=== PATIENT | female | born 1935 | race Caucasian/White ===

== ENCOUNTER → 2016-10-02 | Outpatient (CLI) | payer BC ==
[2016-10-02 17:59] LABS: BASO % 0.3 %; BASO ABS # 0.03 K/uL (0-0.2); COMPLETE YES; HEMATOCRIT 40.5 % (37-47); IG% 0.3 %; LYMPH % 29.8 %; LYMPH ABS # 3.53 K/uL (1.2-3.4); MEAN CELL VOLUME 87.1 fL (80-100); MEAN CORPUSCULAR HEMOGLOBIN 28.8 pg (25-34); MEAN CORPUSCULAR HGB CONC 33.1 g/dl (32-36); MEAN PLATELET VOLUME 11.7 fL (7.4-10.4); MONO % 8.4 %; NEUT % 58.2 %; PLATELET COUNT 270 K/uL (130-400); RED BLOOD COUNT 4.65 M/uL (4.2-5.4); WHITE BLOOD COUNT 11.85 K/uL (4.8-10.8)
[2016-10-02 18:06] LABS: GLUCOSE 132 mg/dl (70-99)
[2016-10-02 18:07] LABS: ALB/GLOB RATIO 0.9 (0.9-2); ALKALINE PHOSPHATASE 76 U/L (45-117); ALT/SGPT 21 U/L (12-78); AST/SGOT 13 U/L (15-37); BLOOD UREA NITROGEN 26 mg/dl (7-18); BUN/CREATININE RATIO 23.7 (10-20); CALCIUM 9.5 mg/dl (8.5-10.1); CARBON DIOXIDE 31 mmol/L (21-32); CHLORIDE 103 mmol/L (98-107); MAGNESIUM 1.7 mg/dl (1.8-2.4); POTASSIUM 4.2 mmol/L (3.5-5.1); SODIUM 141 mmol/L (136-145)
[2016-10-03 07:10] LABS: ESTIMATED AVERAGE GLUCOSE 166 mg/dl; HA1C FLAG Normal (Normal)
== END | disposition home or self-care (01) ==
LOC: C.LABMFLN 16:04
PROVIDERS: ATTEND Family Medicine
DX: E11.9 Type 2 diabetes mellitus without complications (principal); E03.9 Hypothyroidism, unspecified; R00.2 Palpitations

== ENCOUNTER → 2016-11-26 | Outpatient (CLI) | payer BC ==
[~2016-11-26] MED LIST: REGADENOSON 0.4 MG/5 ML SYR ONE
--- NOTE | 2016-11-26 14:05 | MYOCARDIAL PERFUSION SCAN ---
DATE OF PROCEDURE: 11/26/2016. ORDERING PHYSICIAN: Dr. Diaz. PCP is Dr. Dye. PROCEDURE: 1. Myocardial perfusion study performed in multiple views/images. 2. Pharmacologic Lexiscan stress ECG. INDICATIONS: 1. Dyspnea with exertion. 2. Palpitations. 3. SVT. CONSENT: Informed written consent was obtained. ECG AND VITALS: Baseline ECG demonstrated sinus bradycardia with first degree AV block. Maximum heart rate was 82 beats per minute representing 58% maximum predicted heart rate. Resting blood pressure was 165/66 mmHg which was also the maximum blood pressure. The minimum blood pressure was 147/69 mmHg. Chest pain was reported shortly following the Lexiscan administration. This quickly resolved without intervention. PROCEDURAL DETAILS: For the stress portion of the study Lexiscan 0.4 mg IV was intravenously administered over 10-15 seconds followed by saline flush. This was followed with 33 mCi of technetium-99m Cardiolite at 11:09 a.m. on 11/26/2016. Thirty minutes following the injection, imaging of the heart was performed in multiple projections. For the rest portion of the study 10.7 mCi of technetium-99m Cardiolite was injected intravenously at 9:30 a.m. on the same day. One hour following injection, imaging of the heart was performed in the same projections. FINDINGS: Rotating raw imaging demonstrated no significant motion artifact. There was no significant lung uptake. Heart size appeared normal. Myocardial perfusion was normal without significant reversible or fixed defect. Ejection fraction was calculated at 41%; however, visually the LV systolic function appeared normal. There was normal wall motion. There was no significant transient ischemic dilation. IMPRESSION: 1. Normal myocardial perfusion without evidence of significant ischemia or infarct. 2. Visually normal left ventricular systolic function and wall motion. 3. No arrhythmia. 4. Lexiscan Persantine-induced chest pain was reported, but quickly resolved without intervention. 5. Nondiagnostic Lexiscan ECG. Target heart rate not attained.
== END | disposition home or self-care (01) ==
LOC: C.NUCL 08:46
PROVIDERS: ATTEND Internal Medicine Cardiovascular Disease
DX: I47.1 Supraventricular tachycardia (principal); R00.2 Palpitations; R06.09 Other forms of dyspnea

== ENCOUNTER → 2017-01-07 | Outpatient (CLI) | payer BC | END | disposition home or self-care (01) | LOC: C.PAPS 09:52 | PROVIDERS: ATTEND Family Medicine | DX: Z12.4 Encounter for screening for malignant neoplasm of cervix (principal); Z12.72 Encounter for screening for malignant neoplasm of vagina; Z90.710 Acquired absence of both cervix and uterus ==

== ENCOUNTER → 2017-01-31 | Outpatient (CLI) | payer BC ==
--- NOTE | 2017-01-31 15:25 | MAMMOGRAPHY REPORT ---
BILATERAL DIGITAL SCREENING MAMMOGRAM TOMOSYNTHESIS WITH CAD: 01/31/2017 CLINICAL HISTORY: Routine screening. Patient has no complaints. TECHNIQUE: Breast tomosynthesis in addition to standard 2D mammography was performed. Current study was also evaluated with a Computer Aided Detection (CAD) system. COMPARISON: Comparison is made to exams dated: 01/25/2016 mammogram - [facility], 01/09/2015 mammogram, 07/13/2014 mammogram, and 01/13/2014 mammogram - [facility]. BREAST COMPOSITION: The tissue of both breasts is almost entirely fatty. FINDINGS: No suspicious masses, calcifications, or areas of architectural distortion are noted in e ither breast. There has been no significant interval change compared to prior exams. Bilateral paula gn-appearing calcifications are not significantly changed. IMPRESSION: ACR BI-RADS CATEGORY 2: BENIGN There is no mammographic evidence of malignancy. A 1 year screening mammogram is recommended. The p atient will receive written notification of the results. Approximately 10% of breast cancers are not detected with mammography. A negative mammographic repor t should not delay biopsy if a clinically suggestive mass is present. Mercedes Marie M.D. ah/:01/31/2017 13:36:50 Senior Quantity Surveyor: Kellie PULIDO(Claudy)(M), [facility] letter sent: Normal 1/2 BI-RADS Code: ACR BI-RADS Category 2: Benign
== END | disposition home or self-care (01) ==
LOC: C.MAMM 13:04
PROVIDERS: ATTEND Family Medicine
DX: Z12.31 Encounter for screening mammogram for malignant neoplasm of breast (principal)

== ENCOUNTER → 2017-03-28 | Outpatient (CLI) | payer BC ==
[2017-03-28 13:53] LABS: RATIO 24.3 mcg/mg (0-30.0)
[2017-03-28 14:01] LABS: BLOOD UREA NITROGEN 27 mg/dl (7-18); BUN/CREATININE RATIO 22.6 (10-20); CALCIUM 9.7 mg/dl (8.5-10.1); CARBON DIOXIDE 30 mmol/L (21-32); CHLORIDE 103 mmol/L (98-107); CHOLESTEROL 122 mg/dl (0-200); CHOLESTEROL/HDL RATIO 2.3; GLUCOSE 166 mg/dl (70-99); HDL CHOLESTEROL 53 mg/dl; LDL CHOLESTEROL CALCULATED 39 mg/dl; PHOSPHORUS 3.8 mg/dl (2.5-4.9); POTASSIUM 4.5 mmol/L (3.5-5.1); SODIUM 138 mmol/L (136-145); TRIGLYCERIDES 149 mg/dl (0-150); VERY LOW DENSITY LIPOPROT CALC 30 mg/dl
[2017-03-29 07:00] LABS: ESTIMATED AVERAGE GLUCOSE 163 mg/dl; HA1C FLAG Normal (Normal)
== END | disposition home or self-care (01) ==
LOC: C.LABMFLN 08:59
PROVIDERS: ATTEND Family Medicine
DX: E83.42 Hypomagnesemia (principal); E11.9 Type 2 diabetes mellitus without complications; E78.5 Hyperlipidemia, unspecified

== ENCOUNTER → 2017-07-23 | Outpatient (CLI) | payer BC ==
[2017-07-24 07:48] LABS: ESTIMATED AVERAGE GLUCOSE 166 mg/dl; HA1C FLAG Normal (Normal)
== END | disposition home or self-care (01) ==
LOC: C.LABMFLN 13:01
PROVIDERS: ATTEND Family Medicine
DX: E11.9 Type 2 diabetes mellitus without complications (principal)

== ENCOUNTER → 2017-11-10 | Outpatient (CLI) | payer BC ==
[2017-11-10 17:45] LABS: BASO % 0.3 %; BASO ABS # 0.04 K/uL (0-0.2); EOS % 2.7 %; EOS ABS # 0.37 K/uL (0-0.5); HEMATOCRIT 44.4 % (37-47); HEMOGLOBIN 14.5 g/dL (12.0-16.0); IG# 0.03 K/uL (0.00-0.02); LYMPH % 32.7 %; LYMPH ABS # 4.56 K/uL (1.2-3.4); MEAN CELL VOLUME 88.8 fL (80-100); MEAN CORPUSCULAR HGB CONC 32.7 g/dl (32-36); MEAN PLATELET VOLUME 11.7 fL (7.4-10.4); MONO % 6.9 %; MONO ABS # 0.96 K/uL (0.11-0.59); NEUT % 57.2 %; NEUT ABS # 7.98 K/uL (1.4-6.5); PLATELET COUNT 291 K/uL (130-400); RED CELL DISTRIBUTION WIDTH CV 14.5 % (11.5-14.5); RED CELL DISTRIBUTION WIDTH SD 47.1 fL (36.4-46.3); WHITE BLOOD COUNT 13.94 K/uL (4.8-10.8)
[2017-11-10 18:42] LABS: ALBUMIN 3.5 gm/dl (3.4-5.0); ALKALINE PHOSPHATASE 79 U/L (45-117); ALT/SGPT 22 U/L (12-78); AST/SGOT 13 U/L (15-37); BLOOD UREA NITROGEN 26 mg/dl (7-18); CALCIUM 9.7 mg/dl (8.5-10.1); CARBON DIOXIDE 30 mmol/L (21-32); CREATININE 1.23 mg/dl (0.60-1.20); POTASSIUM 4.3 mmol/L (3.5-5.1); SODIUM 138 mmol/L (136-145); TOTAL PROTEIN 7.6 gm/dl (6.4-8.2)
[2017-11-10 18:43] LABS: GLUCOSE 150 mg/dl (70-99)
[2017-11-11 06:14] LABS: HEMOGLOBIN A1C 7.4 % (4.5-5.6)
== END | disposition home or self-care (01) ==
LOC: C.LABMFLN 14:00
PROVIDERS: ATTEND Family Medicine
DX: E11.9 Type 2 diabetes mellitus without complications (principal); E03.9 Hypothyroidism, unspecified